=== PATIENT | male | born 1965 | race Caucasian/White ===

== ENCOUNTER 2021-05-08 23:30 | Emergency (ER) | payer OTHER ==
[2021-05-09] MEDS ORDERED: Sodium Chloride 0.9% 1,000 ML IV ONE
[2021-05-09] MEDS ORDERED: DEXTROSE 5% IV SCH ×2
[2021-05-09] MEDS ORDERED: AMIODARONE IV SCH ×2
[2021-05-09] MEDS ORDERED: WATER IV SCH ×2
[2021-05-09] MEDS ORDERED: Sodium Chloride 0.9% 10 ML Syringe FLUSH PRN
[2021-05-09] MEDS: EPINEPHrine 1:10,000 1 MG/10 ML Syringe IVPUSH ONE ×7 (00:11→01:31)
[2021-05-09] MEDS: EPINEPHrine 1:10,000 1 MG/10 ML Syringe IVPUSH PRN ×2 (00:11→01:07)
[2021-05-09] MEDS: Sodium Bicarbonate 8.4% 50 MEQ/50 ML Syringe IVPUSH PRN ×3 (01:09→03:02)
--- NOTE | 2021-05-09 02:09 | EDM.PDOC ---
ED HPI GENERAL MEDICAL PROBLEM - General Chief Complaint: Cardiovascular Problem Stated Complaint: CPR IN PROGRESS Time Seen by Provider: 05/08/21 23:30 Source of Information: Reports: EMS, Family History Limitations: Reports: Other (unresponsive) - History of Present Illness INITIAL COMMENTS - FREE TEXT/NARRATIVE: patient was brought to the ER due to respiratory arrest. Per his 's reports - he was having a dinner - and shocked on piece of meat ( kabob ) - the tried to help him out but couldn't. He passed out. She called 911. Upon arrival to the scene - patient had no pulse - CPR was started - corrine airway was placed, CPR active, and was rushed to the ER. Patient has a h/o T2DM and morbid obesity. ED ROS GENERAL - Review of Systems Review Of Systems: Unable To Obtain Reason Not Obtained: due to unresponsiveness ED EXAM, GENERAL - Physical Exam Exam: See Below Exam Limited By: Other (unresponsive) General Appearance: Obese Eye Exam: Bilateral Eye: Other (dilated - non reactive) Course - Orders/Labs/Meds Orders: Active Orders 24 hr Category Date Time Status Chest 1V Frontal [CR] Stat Exams 05/09/21 Ordered - Re-Assessments/Exams Free Text/Narrative Re-Assessment/Exam: upon arrival - no pulse - IO was started - multiple doses of epi were given . airways were inspected - a large piece of meat was stuck on the glottic area - a forceps was used to remove it before placing the corrine's airway again. A shock was given - developed a pulse - Afib initially and O2 up to 90's. But patient lost his pulse again. BS 120. Required multiple doses of epi, including epi drip and 2 bicarbs. In and out of asystole multiple times - and CPR for 2 hrs. CXR no PNX or infiltrates. Patient's was called to bed side - Air flight was called as well. Patient was unstable for flight transfer due to in/out of CPR. Neuro exam was done again - pupils dilated and non reactive. Weak pulse was sustained with epi drip, but no BP. Discussed with the family that his neuro status and brain recovery is poor, and that he is dependent on Epi drip at the moment. Family made a decision to not to resume CPR anymore and let him go peacefully. Patient was announced at 02:01 am Departure - Departure Time of Disposition: 02:17 Disposition: 20 Preliminary Cause of *Q: Cardiac Arrest Clinical Impression: Respiratory arrest associated with feeding, due to respiratory arrest - Problem List & Annotations (1) due to respiratory arrest SNOMED Code(s): 310201858 Code(s): R09.2 - RESPIRATORY ARREST Status: Acute Priority: High - Problem List Review Problem List Initiated/Reviewed/Updated: Yes - My Orders Last 24 Hours: My Active Orders 05/09/21 Chest 1V Frontal [CR] Stat - Assessment/Plan Last 24 Hours: My Active Orders 05/09/21 Chest 1V Frontal [CR] Stat Plan: follow hospital protocol
[2021-05-09] MEDS ORDERED: EPINEPHrine 4 MG in Dextrose 5% in Water 250 ML IV SCH ×2 (03:15)
--- NOTE | 2021-05-10 11:11 | CR ---
Date of Service: 05/09/21 Clinical Data: CPR AP PORTABLE CHEST: No priors. There is extensive stretch artifact. The heart appears enlarged. The lungs appear relatively clear. No evidence of pneumothorax. There is some soft tissue emphysema in the left chest wall . No other significant findings. [id number] [facility]
== END 2021-05-09 02:01 | disposition expired ==
LOC: LB.ED 23:30
DX: R09.2 Respiratory arrest (principal); E11.9 Type 2 diabetes mellitus without complications; E66.01 Morbid (severe) obesity due to excess calories
CPT/HCPCS: 36680; 51702; 71045; 82947; 92950; 99285-25; A0425; A0429; J0171; J0282; J7030; J7060